=== PATIENT | female | born 1995 | race African-American/Black ===

== ENCOUNTER 2024-11-12 08:09 | Outpatient (AMB) | payer OTHER, SELFPAY ==
--- NOTE | 2024-11-12 10:23 | A.OFFVIS_ITS ---
VS Expanded 11/12/24 10:29 Height 5 ft 7.5 in Weight 236 lb BMI 36.4 Body Fat % 45.4 Body Fat Mass 107.2 Fat Free Mass 128.8 Visceral Fat Rating 9 Body Water % 39.3 Body Water Mass 92.6 Basal Metabolic Rate/Score 1,851 Intake Visit Reasons: [facility] Allergies No Known Allergies Allergy (Verified 11/12/24 10:23) Medication List - Last Reconciled 11/12/24 by Hayden Watters MD No Known Home Meds HPI HPI [facility]: Details: Start time: 10.12am, End time: 10.47am ?I spent 40 minutes speaking with the patient on the phone plus an additional 5 minutes reviewing and updating records for a total of 45 minutes HPI Comments Details: Previous weight loss efforts: diet and exercise Wakes up: 7am, Sleeps: 11pm Breakfast: 3-4/wk (fruit smoothie, oatmeal, waggle, eggs) Lunch: 1-2pm (salad, meat with potatoes) Dinner: 6pm (as lunch) Snacks: 8pm (shoaib crackers) Exercise: none, gym membership Beverages: Coffee: (8oz/d with Premier protein shake), tea: (2 cups/d with milk), soda: none, juice: none, ETOH: none PFSH Medical History (Updated 11/12/24 @ 10:42 by Hayden Watters MD) Hypertension BMI 36.0-36.9,adult Obesity Surgical History (Updated 10/27/24 @ 13:25 by Bess Swanson CMA) Hx of colonoscopy Hx of oral surgery Hx of section Family History (Updated 10/27/24 @ 13:27 by Bess Swanson CMA) Mother No problems noted. Father Family history unknown Daughter No problems noted. Daughter No problems noted. Daughter No problems noted. Social History (Updated 10/27/24 @ 13:27 by Bess Swanson CMA) Alcohol intake: never Patient Tobacco Use Status: Never used Tobacco Telehealth Telehealth Telehealth Platform: Telephone Location of provider rendering services: practice address Location of patient: address on file Patient Identification confirmed using: Name, : Yes Telehealth method: voice only Patient verbally consented to treatment: Yes Patient verbally consented to billing insurance company: Yes Patient informed of any privacy concerns related to visit: Yes Minutes spent on Phone/Video with Pt.: 45 Assessment & Plan Assessment & Plan (1) Obesity: Code(s): E66.9 - Obesity, unspecified Category: Medical Qualifiers: Obesity type: due to excess calories Obesity classification: adult class 2 (BMI 35 - 39.9) Serious obesity comorbidity presence: without serious comorbidity Body mass index: BMI 36.0-36.9 Qualified Code(s): E66.812 - Obesity, class 2; E66.09 - Other obesity due to excess calories; Z68.36 - Body mass index [BMI] 36.0-36.9, adult Plan: 1. We discussed in detail the available therapeutic options: 1) our lifestyle intervention program that has an average weight loss of 10% in 3 months.? 2) Weight loss medications. Her insurance will approve the Phentermine. Only if Phentermine is not successful or causes side effects such as high blood pressure, insomnia, irritability or dry mouth we could prescribe the GLP-1 injections. You can self pay for the first 3 months and the cost is $399 for the first month and $499 for any other month thereafter. 3) We also discussed about the lap sleeve gastrectomy. I emphasized the importance of close follow-up, adherence to instructions and good communication. The surgery does not replace the need to change your lifestlyle which is the cause of the obesity problem. The surgery provides the motivation to try again to change your lifestyle, it reduces the appetite and make the transition to a better lifestyle easier and doubles the amount of weight you would lose compared to doing the lifestyle change without the surgery. You will need to be on a liquid diet with protein shakes for 2 weeks before surgery to maximize weight loss and boost your nutritional status to recover better from surgery and also for the first two weeks after surgery to let the stomach heal before we introduce other foods. After the first 2 weeks we will introduce protein bars and soft foods like scra mbled eggs, cottage cheese and yogurt and after the 6th week will introduce meat, fish and cooked vegetables in small amounts. Over time you should be able to eat everything in small amounts. Side effects like nausea, vomiting, heartburn or abdominal pain are not common in the practice unless you are not following in the practice. This operation requires lifetime commitment to following in our practice and communication with me. You will much less weight and experience side effects if you don?t communicate or not following in the practice. Complications are rare and in our practice is about 1/10 of the national average. The patient will consider these options and will get back to me with her decision.
[2024-11-12 10:29] VITALS: BMI 36.4
== END 2024-11-12 10:47 | disposition home or self-care (01) ==
LOC: HO.HBS 08:09
PROVIDERS: PCP Internal Medicine; Visit Provider Surgery
DX: E66.812 Obesity, class 2 (principal); E66.09 Other obesity due to excess calories; Z68.36 Body mass index [BMI] 36.0-36.9, adult
CPT/HCPCS: 99204

== ENCOUNTER → 2024-11-12 08:09 | Outpatient (BNVA) | payer OTHER, SELFPAY | PROVIDERS: PCP Internal Medicine; Visit Provider Surgery ==

== ENCOUNTER 2024-11-25 09:52 | Outpatient (REF) | payer OTHER, SELFPAY ==
--- NOTE | ~2024-11-25 | XR_ITS ---
EXAMINATION: XR CHEST CLINICAL INFORMATION: E66.812 - Obesity, class 2 COMPARISON: None available. TECHNIQUE: 2 views of the chest were obtained. FINDINGS: The cardiac, hilar, and mediastinal contours are normal. The lungs are clear bilaterally. There is no pneumothorax or pleural effusion. There is no focal osseous or soft tissue abnormality. XR/XR chest 2V IMPRESSION: Normal chest. Electronically signed by: Duong John MD 11/25/2024 10:36 AM EDT
--- NOTE | 2024-11-25 10:03 | ECG_ITS ---
Test Reason : PREPROC EXAM Blood Pressure : */* mmHG Vent. Rate : 60 BPM Atrial Rate : 60 BPM P-R Int : 178 ms QRS Dur : 106 ms QT Int : 384 ms P-R-T Axes : 33 62 20 degrees QTcB Int : 384 ms Normal sinus rhythm Normal ECG No previous ECGs available Referred By: Hayden Watters Electronically Signed By: Aly Ortiz
[2024-11-25 10:18] LABS: MANUAL DIFF FLAG NO
[2024-11-25 10:45] LABS: Basophils Percent Auto 0.6 % (0-2); Eosinophils Absolute Auto 0.1 X10*3/uL (0.0-0.4); Eosinophils Percent Auto 1.7 % (0-4); Hematocrit 35.5 % (37.0-47.0); Hemoglobin 10.9 g/dl (12.0-16.0); Imm Gran Abs Auto 0.02 X10*3/uL (0.00-0.03); Imm Gran Pct Auto 0.4 % (0.0-0.4); Lymphocytes Absolute Auto 1.5 X10*3/uL (1.2-4.9); Lymphocytes Percent Auto 28.4 % (20-40); Mean Corpuscular HGB Conc 30.7 g/dl (31.0-35.0); Mean Corpuscular Hemoglobin 21.3 pg (27.0-33.0); Mean Corpuscular Volume 69.3 fL (80.0-98.0); Mean Platelet Volume 11.8 fL (9.4-12.3); Monocytes Absolute Auto 0.4 X10*3/uL (0.1-1.2); Monocytes Percent Auto 6.9 % (2-11); Neutrophils Absolute Auto 3.3 x10*3/uL (2.0-8.3); Platelet Count 277 X10*3/uL (160-400); Red Blood Count 5.12 X10*6/uL (4.20-5.50); Red Cell Distribution Width 15.3 % (11.0-16.0); White Blood Count 5.3 X10*3/uL (4.8-10.8)
[2024-11-25 10:51] LABS: Estimated Average Glucose 108 mg/dL; Hemoglobin A1c % 5.4 % (<6.0)
--- OUTSIDE RECORDS SUMMARY | 2024-11-25 11:05 | XMS_ITS | Clinical Summary ---
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 [address], [place] [phone] * (ABNORMAL) Iron and TIBC (10/06/2024 2:35 PM EDT) Iron 40 40 - 150 mcg/dL LAB CHEMISTRY METHOD 10/06/2024 9:41 PM EDT [facility] TIBC 341 250 - 450 mcg/dL LAB CHEMISTRY METHOD 10/06/2024 9:41 PM EDT [facility] Iron Saturation 12(L) 15 - 50 % LAB CHEMISTRY METHOD 10/06/2024 9:41 PM EDT [facility] Blood Venous blood specimen / Unknown Venipuncture / Unknown 10/06/2024 2:35 PM EDT 10/06/2024 2:35 PM EDT [facility] BLOOD ORDERABLES Fi nal Result [facility] [address] [place] [address], [place] [phone] * Ferritin (10/06/2024 2:35 PM EDT) Ferritin 17 8 - 252 ng/mL LAB CHEMISTRY METHOD 10/06/2024 10:02 PM EDT [facility] Blood Venous blood specimen / Unknown Venipuncture / Unknown 10/06/2024 2:35 PM EDT 10/06/2024 2:35 PM EDT [facility] BLOOD ORDERABLES Fi nal Result [facility] [address] [place] [address], [place] [phone] * (ABNORMAL) Lipid panel with reflex to direct LDL (09/25/2024 9:32 AM EDT) Cholesterol 163 0 - 200 mg/dL LAB CHEMISTRY METHOD 09/25/2024 10:33 AM EDT [facility] Triglycerides 55 0 - 150 mg/dL LAB CHEMISTRY METHOD 09/25/2024 10:[address] [facility] HDL 50 >=40 mg/dL LAB CHEMISTRY METHOD 09/25/2024 10:33 AM EDT [facility] LDL Calculated 102(H) 0 - 100 mg/dL LAB CHEMISTRY METHOD 09/25/2024 10:33 AM EDT [facility] VLDL Cholesterol Jodi 11 mg/dL LAB CHEMISTRY METHOD 09/25/2024 10:33 AM T [facility] Non HDL Chol. (LDL+VLDL) 113 <145 mg/dL LAB CHEMISTRY METHOD 09/25/2024 10:33 AM EDT [facility] Chol/HDL Ratio 3.3 0.0 - 4.4 LAB CHEMISTRY METHOD 09/25/2024 10:33 AM T [facility] Blood Venous blood specimen / Unknown Venipuncture / Unknown 09/25/2024 9:32 AM EDT 09/25/2024 9:46 AM EDT [facility] BLOOD ORDERABLES Fi nal Result [facility] [address] [place] [address], [place] [phone] * (ABNORMAL) CBC auto differential (09/25/2024 9:32 AM EDT) [facility] WBC 5.8 4.8 - 10.8 K/mcL LAB HEMETOLOGY METHOD 09/25/2024 10:[address] [facility] RBC 5.00(H) 3.80 - 4.80 M/mcL LAB HEMETOLOGY METHOD 09/25/2024 10:[address] [facility] Hemoglobin 10.7(L) 11.5 - 16.0 g/dL LAB HEMETOLOGY METHOD 09/25/2024 10:[address] [facility] Hematocrit 35.8 35.0 - 47.0 % LAB HEMETOLOGY METHOD 09/25/2024 10:[address] [facility] MCV 72.3(L) 79.0 - 98.0 FL LAB HEMETOLOGY METHOD 09/25/2024 10:[address] [facility] MCH 21.6(L) 27.0 - 32.0 pcg LAB HEMETOLOGY METHOD 09/25/2024 10:[address] [facility] MCHC 29.9(L) 32.0 - 37.0 g/dL LAB HEMETOLOGY METHOD 09/25/2024 10:[address] [facility] RDW 14.9 11.0 - 15.0 % LAB HEMETOLOGY METHOD 09/25/2024 10:[address] [facility] Platelets 365 130 - 400 K/mcL LAB HEMETOLOGY METHOD 09/25/2024 10:[address] [facility] MPV 11.7(H) 7.0 - 11.0 FL LAB HEMETOLOGY METHOD 09/25/2024 10:[address] [facility] NRBC 0.0 <1.0 % LAB HEMETOLOGY METHOD 09/25/2024 10:[address] [facility] NRBC Absolute 0.00 <0.10 K/mcL LAB HEMETOLOGY METHOD 09/25/2024 10:[address] [facility] Neutrophils Relative 61.7 % LAB HEMETOLOGY METHOD 09/25/2024 10:[address] [facility] Lymphocytes Relative 30.1 % LAB HEMETOLOGY METHOD 09/25/2024 10:[address] [facility] Monocytes Relative 6.0 % LAB HEMETOLOGY METHOD 09/25/2024 10:[address] [facility] Eosinophils Relative 1.2 % LAB HEMETOLOGY METHOD 09/25/2024 10:[address] [facility] Basophils Relative 0.7 % LAB HEMETOLOGY METHOD 09/25/2024 10:[address] [facility] Immature Granulocytes Relative 0.3 % LAB HEMETOLOGY METHOD 09/25/2024 10:[address] [facility] Neutrophils Absolute 3.57 1.50 - 7.00 K/mcL LAB HEMETOLOGY METHOD 09/25/2024 10:[address] [facility] Lymphocytes Absolute 1.74 1.00 - 5.00 K/mcL LAB HEMETOLOGY METHOD 09/25/2024 10:[address] [facility] Monocytes Absolute 0.35 0.20 - 1.00 K/mcL LAB HEMETOLOGY METHOD 09/25/2024 10:[address] [facility] Eosinophils Absolute 0.07 0.00 - 0.50 K/mcL LAB HEMETOLOGY METHOD 09/25/2024 10:[address] [facility] Basophils Absolute 0.04 0.00 - 0.20 K/mcL LAB HEMETOLOGY METHOD 09/25/2024 10:[address] [facility] Immature Granulocytes Absolute 0.02 0.00 - 0.03 K/[facility] LAB HEMETOLOGY METHOD 09/25/2024 10:00 AM EDT [facility] Blood Venous blood specimen / Unknown Venipuncture / Unknown 09/25/2024 9:32 AM EDT 09/25/2024 9:46 AM EDT [facility] BLOOD ORDERABLES Fi nal Result Performing Organization Address City/[facility]/ZIP Co de Phone Number [facility] [address] [place] [address], [place] [phone] * Hemoglobin A1c (09/25/2024 9:32 AM EDT) [facility] Hemoglobin A1C 6.1 % 09/25/2024 12:31 PM EDT [facility] Mean Bld Glu Estim. 128 mg/dL 09/25/2024 12:31 PM EDT [facility] Blood Venous blood specimen / Unknown Venipuncture / Unknown 09/25/2024 9:32 AM EDT 09/25/2024 9:46 AM EDT [facility] BLOOD ORDERABLES Fi nal Result Performing Organization Address [facility]/ZIP In de Phone Number [facility] [address] [place] [address], [place] [phone] * Hepatitis C Screening (03/27/2023) [facility] Hepatitis C Screening Abstracted Historical Provider HEALTH MAINTENANCE Final Result * Pap smear (08/26/2021) 08/26/2021 Narrative HISTORICAL TESTING LAB RESULTING AGENCY - 09/08/2021 3:36 PM EDT [id number] THINPREP PAP, IMAGED: NEGATIVE FOR SQUAMOUS INTRAEITHELIAL LESION AND MALIGNANCY. VICTORINO IS PRESENT. NOTE: THE PAP TEST IS A SCREENING TEST WITH AN INHERENT FALSE NEGATIVE RATE. AUTOMATED PRESCREENING OF ALL LIQUID BASED SPECIMENS IS PERFORMED BY THE THINPREP IMAGING SYSTEM UNLESS OTHERWISE STATED. KIMBERLEY PEOPLES(ASCP) (CASE ELECTRONICALLY SIGNED 09 08 2021) ADEQUACY: SATISFACTORY ENDOCERVICAL/TRANSFORMATION ZONE COMPONENT PRESENT. SOURCE: THINPREP PAP HPV IF ASCUS, CERVICAL, IMAGED CLINICAL INFORMATION: HPV IF DIAGNOSIS OF ASCUS. , Z12.4 Adam Chatterjee DO LAB CYTOLOGY ORDERABLES Final Result HISTORICAL TESTING LAB RESULTING AGENCY * HIV Screening (08/24/2021) HIV Screening Abstracted Historical Provider HEALTH MAINTENANCE Final Result from Last 3 Months or Most Recently Relevant to Health Maintenance Insurance [facility] Outline PLAN Care Teams Auto Transport Driver Relationship Specialty Start Date End Date Joon Hickman MD [address] [place] [id number] PCP - General Internal Medicine 09/09/21
[2024-11-25 11:24] LABS: Alanine Aminotransferase 14 U/L (0-31); Albumin Level 4.5 g/dL (3.5-5.0); Alkaline Phosphatase 77 U/L (39-117); Anion Gap 9 (12-20); Aspartate Amino Transferase 20 U/L (5-31); Bilirubin Total 0.5 mg/dL (0.0-1.0); Blood Urea Nitrogen 15 mg/dL (9-16); C Reactive Protein 0.29 mg/dL (< or = 0.50); Calcium 9.5 mg/dL (8.4-10.2); Carbon Dioxide 26 mmol/L (22-29); Chloride 109 mmol/L (96-108); Cholesterol 170 mg/dL (<200); Estimated Glomerular Filt Rate > 60; Glucose Random 88 mg/dL (60-115); HDL Cholesterol 40 mg/dL (>40); Iron 44 mcg/dL (30-160); LDL Cholesterol Calculated 120 mg/dL (<100); Percent Iron Saturation 13 % (15-50); Potassium 3.8 mmol/L (3.3-5.1); Sodium 140 mmol/L (135-145); Total Iron Binding Capacity 331 mcg/dL (228-428); Total Protein 7.4 g/dL (6.5-8.0); Triglycerides 52 mg/dL (<150); Unsaturated Iron Binding 287 ug/dL
[2024-11-25 11:53] LABS: Vitamin B12 630 pg/mL (200-900)
[2024-11-25 11:54] LABS: Ferritin 20 ng/mL (10-122); TSH reflex Free T4 1.03 uIU/mL (0.32-4.0); Vitamin D 25-OH Total 28.2 ng/mL (>30)
[2024-11-25 11:59] LABS: Insulin 6 uU/mL (2-29)
[2024-11-27 23:19] LABS: Zinc 85 mcg/dL (60-130)
[2024-11-28 20:03] LABS: Vitamin A 38 mcg/dL (38-98)
[2024-11-30 14:09] LABS: Vitamin B1 9 nmol/L (8-30)
== END 2024-11-25 09:53 | disposition home or self-care (01) ==
LOC: HO.XRAY 09:52
PROVIDERS: Visit Provider Surgery
DX: E66.812 Obesity, class 2 (principal); E66.09 Other obesity due to excess calories; Z68.36 Body mass index [BMI] 36.0-36.9, adult
CPT/HCPCS: 36415; 71046; 80053; 80061; 82306; 82607; 82728; 82746; 83036; 83525; 83540; 84425; 84443; 84590; 84630; 85025; 86140; 93005

== ENCOUNTER → 2024-11-25 10:03 | Outpatient (BNV) | payer OTHER, SELFPAY | PROVIDERS: Visit Provider Internal Medicine Cardiovascular Disease | DX: Z13.6 Encounter for screening for cardiovascular disorders (principal) | CPT/HCPCS: 93010 ==

== ENCOUNTER → 2024-11-25 10:19 | Outpatient (BNV) | payer OTHER, SELFPAY | PROVIDERS: Visit Provider Radiology Diagnostic Radiology | DX: E66.812 Obesity, class 2 (principal) | CPT/HCPCS: 71046 ==

== ENCOUNTER 2024-12-08 09:13 | Outpatient (REF) | payer OTHER, SELFPAY ==
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
--- NOTE | ~2024-12-08 | FL_ITS ---
EXAMINATION: XR FLUOROSCOPY UPPER GI WITH AIR CLINICAL INFORMATION: Obesity. Preop COMPARISON: None available. TECHNIQUE: Routine upper GI contrast study was performed in upright and lying position. FINDINGS: Following oral administration of thick barium and effervescent granules in upright view there is normal propagation of bolus from the oral cavity through the pharynx, esophagus into stomach without obstruction, narrowing or stricture. Or extrinsic compression seen The mucosal pattern of the esophagus is normal. On placing patient supine and prone lying the course, caliber and peristalsis of the stomach, duodenal bulb and sweep is normal. The mucosal pattern of stomach and the duodenum is normal. FLUOROSCOPY TIME: 1 minute 36 seconds DOSE AREA PRODUCT: 158.9 uGy-m2 (microgray-meter squared) FL/FL upper GI w air IMPRESSION: Unremarkable upper GI air contrast study. Electronically signed by: Musa Yang MD 12/08/2024 10:03 AM EDT RP
== END 2024-12-08 09:14 | disposition home or self-care (01) ==
LOC: HO.XRAY 09:13
PROVIDERS: PCP Internal Medicine; Visit Provider Surgery
DX: E66.812 Obesity, class 2 (principal); E66.09 Other obesity due to excess calories; Z68.36 Body mass index [BMI] 36.0-36.9, adult
CPT/HCPCS: 74246

== ENCOUNTER → 2024-12-08 09:15 | Outpatient (BNV) | payer OTHER, SELFPAY | PROVIDERS: PCP Internal Medicine; Visit Provider Radiology Diagnostic Radiology | DX: E66.9 Obesity, unspecified (principal) | CPT/HCPCS: 74246 ==

== ENCOUNTER 2024-12-19 11:03 | Outpatient (AMB) | payer OTHER, SELFPAY ==
--- NOTE | 2024-12-19 11:05 | MHC.WMTHER ---
Intake Intake Visit Reasons: OV BH Intake Allergies No Known Allergies Allergy (Verified 11/12/24 10:23) [facility] Medical History (Updated 11/27/24 @ 20:10 by Hayden Watters MD) Hypertension BMI 36.0-36.9,adult Obesity Surgical History (Updated 10/27/24 @ 13:25 by Bess Swanson CMA) Hx of colonoscopy Hx of oral surgery Hx of section Family History (Updated 10/27/24 @ 13:27 by Bess Swanson CMA) Mother No problems noted. Father Family history unknown Daughter No problems noted. Daughter No problems noted. Daughter No problems noted. Social History (Updated 10/27/24 @ 13:27 by Bess Swanson CMA) Alcohol intake: never Patient Tobacco Use Status: Never used Tobacco Behavioral Health Assessment Weight Management Therapy Therapy Notes Details The patient is a 29-year-old female presenting for an initial visit to begin a behavioral health assessment as part of a surgical weight loss program. She reports being referred by her primary care provider due to her interest in medical weight-loss options. The patient has experienced significant weight gain over the past 4-5 years following motherhood and currently has three children under the age of three, with the youngest being one year old. PT expresses uncertainty about whether weight-loss surgery is the right option for her at this time. Presenting Concerns Referral Source WMP-Provider. Reason for referral Completion of behavioral health assessment as part of process for weight-loss surgery. Precipitating Event Obesity. Social History Family history and relationship PT is 5 years ago, they have 3 children (3 and under - 3 girls) and a stepson. PT is the youngest of 4, she has 2 siblings alive, 1 passed. Her parents are alive. PT reports she has a good relationship with them. Parental/Familial security guard obligations 3 daughters and shared custody of stepson. Developmental history and status None reported. Social support , parents. Community support Therapist, PCP. Hoahaoism/Spirituality Yarsani. Cultural/Ethnic information -South African. Legal Involvement and History Current or historical involvement with the legal system? None reported. Education Highest grade completed Graduated HS Some college - Business management. Preferred learning style Learn by doing Currently enrolled in educational program? No Interested in further educational program? Yes Educational Interests/Skills Would like to go back for [employer]. Employment Employment Status Unemployed (SAHM) Wants help to find employment? No Meaningful activities work in process. Financial Situation Describe current financial situation Comfortable and Occasional struggle Financial assistance? Food [place] and [place] ([place]) Service Service? No Mental Health and Addiction Treatment Psychiatric history PT currently attends counseling at [facility] with Gracia Short. She has been in therapy for couple of months, she started attending counseling Medical and Physical Health Summary Additional Medical History not covered in history None additional Sexual History concerns None reported. Physical exam in the last year? Yes [place] [email or web address] Pain Screening Current pain? No Pain in the last few months? No Medications Is the patient compliant with medications? Yes (D/C Phentermine, had side effects. ) Does the patient have James Guardian in place? Not applicable Does the patient use complimentary health approaches? No Questionnaires PHQ-9 Over the last 2 weeks, how often have you been bothered by any of the following problems? 1. Little interest or pleasure in doing things: not at all 2. Feeling down, depressed, or hopeless: not at all 3. Trouble falling or staying asleep, or sleeping too much: not at all 4. Feeling tired or having little energy: several days 5. Poor appetite or overeating: not at all 6. Feeling bad about yourself - or that you are a failure or have let yourself or your family down: not at all 7. Trouble concentrating on things, such as reading the newspaper or watching television: not at all 8. Moving or speaking so slowly that other people could have noticed. Or the opposite - being so fidgety or restless that you have been moving around a lot more than usual: not at all 9. Thoughts that you would be better off or of hurting yourself in some way: not at all Total score: 1 Depression Screening Interpretation: Negative (From new PT pack done on 10/27/2024.) Depression Screening Done: Yes Source: Developed by Drs. Luisito Gutiérrez, Lary Arvizu, Urbano Rodriguez and colleagues, with an educational lacho from [employer]. Binge Eating Scale Group 1 A. I don't feel self-conscious about my wt. or body size when I'm with others. B. I feel concerned about how I look to others, but it normally does not make me fell disappointed with myself C. I do get self-conscious about my appearance and wt. which makes me feel disappointed in myself. D. I feel very self-conscious about my wt. and frequently I feel intense shame and disgust for myself. I try to avoid social contacts because of my self-consciousness. Response Group 1: A Group 2 A. I don't have any difficulty eating slowly in the proper manner. B. Although I seem to gobble down foods, I don't end up feeling stuffed because of eating to much. C. At times, I tend to eat quickly and then, I feel uncomfortably full afterwards. D. I have the habit of bolting down my food, without really chewing it. When this happens I usually feel uncomfortably stuffed because I've eaten to much. Response Group 2: A Group 3 A. I feel capable to control my eating urges when I want to. B. I feel like I have failed to control my eating more than the average person. C. I feel utterly helpless when it comes to feeling in control of my eating urges. D. Because I feel so helpless about controlling my eating I have become very desperate about trying to get control. Response Group 3: A Group 4 A. I don't have the habit of eating when I'm bored. B. I sometimes eat when I'm bored, but often I'm able to get busy and get my mind off food. C. I have a regular habit of eating when I'm bored, but occasionally, I can use some other activity to get my mind off eating. D. I have a strong habit of eating when I'm bored. Nothing seems to help me breath the habit. Response Group 4: B Group 5 A. I'm usually physically hungry when I eat something. B. Occasionally, I eat something on impulse even though I really am not hungry. C. I have the regular habit of eating foods, that I might not really enjoy, to satisfy a hungry feeling even though physically, I don't need the food. D. Although I'm not physically hungry, I get a hungry feeling in my mouth that only seems to be satisfied when I eat a food, like sandwich, that fills my mouth. Sometimes, when I eat the food to satisfy my mouth hunger, I then spit the food out so I won't gain weight. Response Group 5: A Group 6 A. I don't feel any guilt or self-hate after I overeat. B. After I overeat, occasionally I feel guilt or self-hate. C. Almost all the time I experience strong guilt or self-hate after I overeat. Response Group 6: A Group 7 A. I don't lose total control of my eating when dieting even after periods when I overeat. B. Sometimes when I eat a forbidden food on a diet, I feel like I blew it and eat even more. C. Frequently, I have the habit of saying to myself, I've blown it now, why not go all the way, when I overeat on a diet. When that happens I eat more. D. I have a regular habit of starting a strict diets for myself but I break the diets by going on an eating binge. My life seems to be either a feast or famine. Response Group 7: B Group 8 A. I rarely eat so much food that I feel uncomfortably stuffed afterwards. B. Usually about once a month, I each such a quantity of food, I end up feeling very stuffed. C. I have regular periods during the month when I eat large amounts of food, either at mealtime or at snacks. D. I eat so much food that I regularly feel quite uncomfortable after eating and sometimes a bit nauseous. Response Group 8: A Group 9 A. My level of calorie intake does not go up very high or go down very low on a regular basis. B. Sometimes after I overeat, I will try to reduce my caloric intake to almost nothing to compensate for the excess calories I've eaten. C. I have a regular habit of overeating during the night. It seems that my routine is not to be hungry in the morning but overeat in the evening. D. In my adult years, I have had week-long periods where I practically starve myself. This follows periods when I overeat. It seems I live a life of either feast or famine. Response Group 9: B Group 10 A. I usually am able to stop eating when I want to. I know when enough is enough. B. Every so often, I experience a compulsion to eat which I can't seem to control. C. Frequently, I experience strong urges to eat which I seem unable to control, but at other times I can control my eating urges. D. I feel incapable of controlling urges to eat. I have a fear of not being able to stop eating voluntarily. Response Group 10: A Group 11 A. I don't have any problem stopping eating when I feel full. B. I usually can stop eating when I feel full but occasionally overeat leaving me feeling uncomfortably stuffed. C. I have a problem stopping eating once I start and usually I feel uncomfortably stuffed after I eat a meal. D. Because I have a problem not being able to stop eating when I want, I sometimes have to induce vomiting to relieve my stuffed feeling. Response Group 11: B Group 12 A. I seem to eat just as much when I'm with others, Family social gatherings as when I'm by myself. B. Sometimes, when I'm with other persons, I don't eat as much as I want to eat because I'm self-conscious about my eating. C. Frequently, I eat only a small amount of food when others are present, because I'm very embarrassed about my eating. D. I feel so ashamed about overeating that I pick times to overeat when I know no one will see me. I feel like a closet eater. Response Group 12: A Group 13 A. I eat three meals a day with only an occasional between meal snack. B. I eat 3 meals a day, but I also normally snack between meals. C. When I am snacking heavily, I get in the habit of skipping regular meals. D. There are regular periods when I seem to be continually eating, with no planned meals. Response Group 13: D Group 14 A. I don't think much about trying to control unwanted eating urges. B. At least some of the time, I feel my thoughts are pre-occupied with trying to control my eating urges. C. I feel that frequently I spend much time thinking about how much I ate or about trying not to eat anymore. D. It seems to me that most of my waking hours are pre-occupied by thoughts about eating or not eating. I feel like I'm constantly struggling not to eat. Response Group 14: A Group 15 A. I don't think about food a great deal. B. I have strong craving for food but they last only for brief periods of time. C. I have days when I can't seem to think about anything else but food. D. Most of my days seem to be pre-occupied with thoughts about food. I feel like I live to eat. Response Group 15: A Group 16 A. I usually know whether or not I'm physically hungry. I take the right portion of food to satisfy me. B. Occasionally, I feel uncertain about knowing whether or not I'm physically hungry. A these times it's hard to know how much food I should take to satisfy me. C. Even though I might know how many calories I should eat, I don't have any idea what is a normal amount of food for me. Response Group 16: B Binge Eating Score: 8 Score less than 17 Minimal Risk Score between 18-26 Moderate Risk Score between 27-46 High Risk Assessment & Plan Assessment & Plan (1) Adjustment disorder: Code(s): F43.20 - Adjustment disorder, unspecified Qualifiers: Adjustment disorder type: unspecified type Qualified Code(s): F43.20 - Adjustment disorder, unspecified (2) Pre-bariatric surgery psychological evaluation: Code(s): Z71.89 - Other specified counseling Plan The patient was not cleared today as the assessment remains incomplete. She will return in 2-4 weeks to continue the evaluation process. The patient has expressed a preference for in-person sessions. Next Appointment:?01/16/2025 at 12:00 PM, in person. Coding Level of Care Code New Pt Psy Diag Saryshea ([id number]) Patient Type New Diagnoses Adjustment disorder, unspecified type F43.20 Adjustment disorder type: unspecified type Pre-bariatric surgery psychological evaluation Z71.89 Time Spent (min) 60
--- OUTSIDE RECORDS SUMMARY | 2024-12-19 11:42 | XMS_ITS | Clinical Summary ---
Author Organization [facility] [address] [facility] Address [address] [place], [place] Phone Care Team Providers Care Pad Hand Name Role Phone Joon Hickman MD Primary Care Provider [phone] Allergies Active Allergy Reactions Criticality Noted Date Comments House Dust 07/16/2015 Sneezing Other Runny nose Medium 03/19/2023 Seasonal Allergies Watery eyes, sneezing Medications valACYclovir (VALTREX) 500 mg tablet if needed. 06/25/2023 Active ferrous gluconate (FERGON) 324 mg (38 mg iron) tablet Take 1 tablet (324 mg total) by mouth every other day. 15 each 11/04/2024 Active magnesium, amino acid chelate, 133 mg tablet Take 1 tablet (133 mg total) by mouth 1 (one) time each day. Active phentermine 37.5 mg capsule Take 1 capsule (37.5 mg total) by mouth 1 (one) time each day before breakfast. Max Daily Amount: 37.5 mg Active Active Problems Problem Noted Date Diagnosed Date [...] Had stress test after last delivery at [facility], Normal with no follow up necessary per pt. Will request records 06-27-2019 pt seen by pcp - angelica . EKG was done, reviewed by Dr. Payton me, no previous 1 to compare. It is questionably suggesting left ventricular hypertrophy, with borderline Q waves in the inferior leads. Referred to [facility] - [facility] 08-11-2019 pt saw [facility] cardiology - pt dx with atypical chest pain, positive murmur. Echo and exercise tolerance test ordered. F/u with [employer] [facility] 02-10-2020 [facility] cardiology records- echo completed 01/20/2020 no significant [...] Records sent to scanning 12/07/20 Patient states [facility] Cardiology does not want to perform stress test while patient is . I called [facility] Cardiology and confirmed they do not recommend stress test in . Their recommendation is for her to go to ER if she experiences chest pain or shortness of breath. Adam Chatterjee, 11/09/2020 I called [facility]iology today to confirm whether she needs [...] Assessment & Plan: Will obtain records from [facility] from stress test. Per pt, no follow up necessary. Encounters Date Type Department Care Team Description 12/04/2024 11:00 AM EDT Office Visit Obstetrics and Gynecology [address] [phone] Cathy Shore PA PMS (premenstrual syndrome) (Primary Dx) 11/27/2024 Telephone Obstetrics & Gynecology [address] [phone] Brandi Majano CNM Premenstrual Syndrome 11/19/2024 Telephone Obstetrics & Gynecology [address] [phone] Ayse Nieves CNM Med Refill 11/14/2024 Telephone Obstetrics and Gynecology - [address] [phone] Marcy Jarvis DO Results 11/10/2024 11:02 AM EDT Anesthesia Event [address] [phone] Christal Knox MD Millay, Julia, CRNA 11/10/2024 10:15 AM EDT - 11/10/2024 11:30 AM EDT Surgery [facility] OR [address] [place] [phone] Marcy Jarvis DO HYSTEROSCOPY W/ DILATION & CURETTAGE [41145 (CPT )] 11/10/2024 8:59 AM EDT - 11/10/2024 1:36 PM EDT Hospital Encounter [address] [phone] Marcy Jarvis DO Endometrial thickening on ultrasound; Abnormal uterine bleeding (AUB) Discharge Disposition: Home or Self Care 11/04/2024 8:45 AM EDT Office Visit Internal Medicine - [address] [phone] Joon Hickman MD Iron deficiency anemia secondary to inadequate dietary iron intake (Primary Dx); Prediabetes; Class 2 obesity due to excess calories without serious comorbidity with body mass index (BMI) of 37.0 to 37.9 in adult; Hyperhidrosis; Chronic sore throat 10/29/2024 Telephone Obstetrics and Gynecology - [address] [phone] Marcy Jarvis DO 10/23/2024 11:00 AM EDT Procedure visit Obstetrics and Gynecology - [address] [phone] Cathy Shore PA Abnormal uterine bleeding (AUB) (Primary Dx); Endometrial thickening on ultrasound 10/08/2024 9:15 AM EDT - 10/08/2024 11:59 PM EDT Hospital Encounter Ultrasound - [address] [phone] Abnormal uterine bleeding (AUB) Discharge Disposition: Home or Self Care 10/07/2024 Telephone Obstetrics and Gynecology - [address] [phone] Cathy Shore PA Results 10/06/2024 3:30 PM EDT Office Visit Obstetrics and Gynecology - [address] [phone] Cathy Shore PA Abnormal uterine bleeding (AUB) (Primary Dx); Vaginal irritation; Screen for STD (sexually transmitted disease) 10/06/2024 Telephone Pediatrics - [address] [phone] Joon Hickman MD Results 09/26/2024 Telephone Internal Medicine - [address] [phone] Victorina Nicolas MA Results 09/26/2024 Telephone Obstetrics and Gynecology - [address] [phone] Brandi Majano CNM Vaginal/vulvar Complaint from Last 3 Months Immunizations Name Administration Dates Next Due DTP 06/24/2001 DTaP (Infanrix) 6wks to less than 7yo ,05/21/1997,04/09/1997,02/19 [id number] (Pentacel) 2mo to less than 5yo 05/12/1999,05/21/1997,04/09/1997,02/19 [...] 4d F Vag-S pont Livin g Delivery Location:[facility] 2021 Term 37w 3d 3118 g (110 oz) F CS-LT ranv Epidur al,Gen eral N Livin g 1 8 Georges Clayton MD Comments:PLTCS for NRF HT, CHTN, GDMA2. Epidural converted to general 2023 Term 37w 1d F Epidur al Livin g Brandi Majano CNM Complications:-barbara rosalie hypertension Last Filed Vital Signs Vital Sign Reading Time Taken Comments Blood Pressure 120/76 12/04/2024 11:10 AM EDT Pulse 70 12/04/2024 11:10 AM EDT Temperature 36.2 C (97.2 F) 11/10/2024 12:43 PM EDT Respiratory Rate 15 12/04/2024 11:10 AM EDT Oxygen Saturation 100% 11/10/2024 12:43 PM EDT Inhaled Oxygen Concentration - - Weight 103 kg (227 lb 9.6 oz) 12/04/2024 11:10 A M EDT Height 172.7 cm (5' 8 ) 12/04/2024 11:10 AM EDT Body Mass Index 34.61 12/04/2024 11:10 AM EDT Plan of Treatment Health Maintenance Due Date Last Done Comments Pneumococcal Vaccine: Pediatrics (0 to 5 Years) and At-Risk Patients (6 to 49 Years) (1 of 2 - PCV) 11/17/2015 Depression Screening 05/20/2022 Social Influencers of Health Screening 05/20/2022 COVID-19 Vaccine ( season) 2024 Cervical Cancer Screening: Pap Smear 08/26/2024 08/26/2021, 08/26/2021, 08/26/2021, Additional history exists Influenza Vaccine (#1) 2025 Cholesterol Screening (Lipid Panel) 09/25/2029 09/25/2024, [...] Procedure Name Priority Date/Time Associated Diagnosis Comments EXTERNAL XRAY REPORT 12/08/2024 EXTERNAL XRAY REPORT 12/08/2024 TISSUE EXAM Routine 11/10/2024 11:32 AM EDT Endometrial thickening on ultrasound Abnormal uterine bleeding (AUB) TH AN LMA(NO CHARGE) Routine 11/10/2024 11:22 AM EDT CA HYSTEROSCOPY W/BIOPSY ENDOMETRIUM AND/OR POLYPECTOMY W/O AND/OR [...] 09/25/2024 9:32 AM EDT Health maintenance examination HM HEPATITIS C SCREENING Routine 03/27/2023 PAP SMEAR Routine 08/26/2021 HM HIV SCREENING Routine 08/24/2021 from Last 3 Months or Most Recently Relevant to Health Maintenance Results * External Xray Report (12/08/2024) Only the most recent of2 resultswithin the time period is included. Anatomical Region Laterality Modality Radiographic Olivia ging us Provider [facility] XR PROCEDURES Final Result * Tissue exam (11/10/2024 11:32 AM EDT) Final Diagnosis Endometrial curettage: Weakly proliferative endometrium with focal breakdown No endometrial polyp, hyperplasia or neoplasm identified Benign endocervical mucosa 11/11/2024 9:[address] [facility] Gross Description A. Endometrium, EMC: Labeled [facility] Endo . Received in formalin, some of which is on Telfa, is a 3.0 x 1.5 x 0.3 cm aggregate of soft, womack-pink to red, slightly polypoid tissue fragments and blood clot, which is wrapped in paper and submitted in toto in one cassette, multiple pieces, x 2. TS 11/11/2024 9:[address] [facility] Disclaimer Unless otherwise specified, all tissue is 10% NB formalin fixed and paraffin embedded. 11/11/2024 9:[address] [facility] Tissue Endometrial structure / Unknown 11/10/2024 11:32 AM EDT 11/10/2024 12:00 PM EDT us Marcy Jarvis DO LAB PATHOLOGY ORDERABLES Estela quevedo Result [facility] [address] [place] [address], * TH AN LMA(NO CHARGE) (11/10/2024 11:22 AM EDT) Narrative Shahida Thorne CRNA - 11/10/2024 11:22 AM EDT Shahida Thorne CRNA 11/10/2024 11:22 AM General Information and Staff Patient location during procedure: OR Performed by: Shahida Thorne CRNA Authorized by: Christal Knox MD Intubation Airway not difficult Urgency: elective Final [...] TEST ENTER/SABA T ORDERABLES Final Result * US Pelvis Non OB Complete w Transvaginal (10/08/2024 [...] Signed Date: 10/08/2024 13:23 ET Workstation ID: [id number] Transcribed By: Self Edit Transcribed Date: 10/08/2024 [...] Signed Date: 10/08/2024 13:23 ET Workstation ID: [id number] Transcribed By: Self Edit Transcribed Date: 10/08/2024 13:21 ET us [facility] US PROCEDURES Final Resu lt * Thyroid stimulating hormone with reflex to free t4 and free t3 (10/06/2024 4:17 PM EDT) Only the most recent of2 resultswithin the time period is included. [facility] TSH 1.16 0.40 - 4.00 mcIU/mL LAB CHEMISTRY METHOD 10/06/2024 8:[address] [facility] Blood Venous blood specimen / Unknown Venipuncture / Unknown 10/06/2024 4:17 PM EDT 10/06/2024 4:17 PM EDT us Cathy [facility] LAB BLOOD ORDERABLES Final R esult Performing Organization Address City/[facility]/ZIP Co de Phone Number [facility] [address] [place] [address], [place] [phone] * HCG, serum, qualitative (10/06/2024 4:17 PM EDT) [facility] hCG Qual Negative Negative 10/06/2024 7:[address] [facility] Blood Venous blood specimen / Unknown Venipuncture / Unknown 10/06/2024 4:17 PM EDT 10/06/2024 4:17 PM EDT us Cathy [facility] BLOOD ORDERABLES Final R esult [facility] [address] [place] [address], [place] [phone] * Trichomonas vaginalis antigen (10/06/2024 4:16 PM EDT) Trichomonas vaginalis Negative Negative 10/06/2024 9:[address] [facility] Swab Vaginal structure / Unknown Non-blood Collection / Unknown 10/06/2024 4:16 PM EDT 10/06/2024 4:16 PM EDT [facility] MICROBIOLOGY - GENERAL O RDERABLES Final Result Performing Organization Address [facility]/ZIP Co de Phone Number [facility] [address] [place] [address], [place] [phone] * Chlamydia trachomatis and Neisseria gonorrhoeae molecular study (10/06/2024 4:16 PM EDT) Neisseria gonorrhoeae PCR Negative Negative LAB MOLECULAR DIAGNOSTICS METHOD 10/07/2024 8:[address] [facility] Chlamydia trachomatis PCR Negative Negative LAB MOLECULAR DIAGNOSTICS METHOD 10/07/2024 8:[address] [facility] Swab Vaginal structure / Unknown Non-blood Collection / Unknown 10/06/2024 4:16 PM EDT 10/06/2024 4:16 PM EDT us Cathy [facility] MICROBIOLOGY - GENERAL O RDERABLES Final Result Performing Organization Address [facility]/ZIP Co de Phone Number [facility] [address] [place] [address], [place] [phone] * Wet prep, genital (10/06/2024 4:16 PM EDT) Clue Cells, Wet Prep Negative Negative 10/06/2024 9:[address] [facility] Yeast, Wet Prep Negative Negative 10/06/2024 9:[address] [facility] Trichomonas, Wet Prep Indeterminate Negative 10/06/2024 9:36 PM EDT [facility] Comment:Refer to Trichomonas antigen. Swab Vaginal structure / Unknown Non-blood Collection / Unknown 10/06/2024 4:16 PM EDT 10/06/2024 4:16 PM EDT [facility] MICROBIOLOGY - GENERAL O RDERABLES Final Result Performing Organization Address [facility] Co de Phone Number [facility] [address] [place] [address], [place] [phone] * (ABNORMAL) Iron and TIBC (10/06/2024 2:35 PM EDT) Iron 40 40 - 150 mcg/dL LAB CHEMISTRY METHOD 10/06/2024 9:[address] [facility] TIBC 341 250 - 450 mcg/dL LAB CHEMISTRY METHOD 10/06/2024 9:[address] [facility] Iron Saturation 12(L) 15 - 50 % LAB CHEMISTRY METHOD 10/06/2024 9:[address] [facility] Blood Venous blood specimen / Unknown Venipuncture / Unknown 10/06/2024 2:35 PM EDT 10/06/2024 2:35 PM EDT Dieter [facility] BLOOD ORDERABLES Fi nal Result Performing Organization Address [facility] Co de Phone Number [facility] [address] [place] [address], [place] [phone] * Ferritin (10/06/2024 2:35 PM EDT) Ferritin 17 8 - 252 ng/mL LAB CHEMISTRY METHOD 10/06/2024 10:[address] [facility] Blood Venous blood specimen / Unknown Venipuncture / Unknown 10/06/2024 2:35 PM EDT 10/06/2024 2:35 PM EDT [facility] BLOOD ORDERABLES Fi nal Result [facility] [address] [place] [address], [place] [phone] * (ABNORMAL) Lipid panel with reflex to direct LDL (09/25/2024 9:32 AM EDT) [facility] Cholesterol 163 0 - 200 mg/dL LAB CHEMISTRY METHOD 09/25/2024 10:[address] [facility] Triglycerides 55 0 - 150 mg/dL LAB CHEMISTRY METHOD 09/25/2024 10:[address] [facility] HDL 50 >=40 mg/dL LAB CHEMISTRY METHOD 09/25/2024 10:[address] [facility] LDL Calculated 102(H) 0 - 100 mg/dL LAB CHEMISTRY METHOD 09/25/2024 10:[address] [facility] VLDL Cholesterol Issa 11 mg/dL LAB CHEMISTRY METHOD 09/25/2024 10:33 AM [facility] Non HDL Chol. (LDL+VLDL) 113 <145 mg/dL LAB CHEMISTRY METHOD 09/25/2024 10:[address] [facility] Chol/HDL Ratio 3.3 0.0 - 4.4 LAB CHEMISTRY METHOD 09/25/2024 10:33 AM [facility] Blood Venous blood specimen / Unknown Venipuncture / Unknown 09/25/2024 9:32 AM EDT 09/25/2024 9:46 AM EDT [facility] BLOOD ORDERABLES Fi nal Result [facility] [address] [place] [address], [place] [phone] * (ABNORMAL) CBC auto differential (09/25/2024 9:32 AM EDT) WBC 5.8 4.8 - 10.8 K/mcL LAB HEMETOLOGY METHOD 09/25/2024 10:00 AM [facility] RBC 5.00(H) 3.80 - 4.80 M/mcL LAB HEMETOLOGY METHOD 09/25/2024 10:00 AM [facility] Hemoglobin 10.7(L) 11.5 - 16.0 g/dL LAB HEMETOLOGY METHOD 09/25/2024 10:00 AM [facility] Hematocrit 35.8 35.0 - 47.0 % LAB HEMETOLOGY METHOD 09/25/2024 10:00 AM [facility] MCV 72.3(L) 79.0 - 98.0 FL LAB HEMETOLOGY METHOD 09/25/2024 10:00 AM [facility] MCH 21.6(L) 27.0 - 32.0 pcg LAB HEMETOLOGY METHOD 09/25/2024 10:00 AM [facility] MCHC 29.9(L) 32.0 - 37.0 g/dL LAB HEMETOLOGY METHOD 09/25/2024 10:00 AM [facility] RDW 14.9 11.0 - 15.0 % LAB HEMETOLOGY METHOD 09/25/2024 10:00 AM [facility] Platelets 365 130 - 400 K/[facility] LAB HEMETOLOGY METHOD 09/25/2024 10:00 AM [facility] MPV 11.7(H) 7.0 - 11.0 FL LAB HEMETOLOGY METHOD 09/25/2024 10:00 AM [facility] NRBC 0.0 <1.0 % LAB HEMETOLOGY METHOD 09/25/2024 10:00 AM [facility] NRBC Absolute 0.00 <0.10 K/mcL LAB HEMETOLOGY METHOD 09/25/2024 10:00 AM [facility] Neutrophils Relative 61.7 % LAB HEMETOLOGY METHOD 09/25/2024 10:00 AM [facility] Lymphocytes Relative 30.1 % LAB HEMETOLOGY METHOD 09/25/2024 10:00 AM [facility] Monocytes Relative 6.0 % LAB HEMETOLOGY METHOD 09/25/2024 10:00 AM [facility] Eosinophils Relative 1.2 % LAB HEMETOLOGY METHOD 09/25/2024 10:00 AM [facility] Basophils Relative 0.7 % LAB HEMETOLOGY METHOD 09/25/2024 10:00 AM [facility] Immature Granulocytes Relative 0.3 % LAB HEMETOLOGY METHOD 09/25/2024 10:00 AM [facility] Neutrophils Absolute 3.57 1.50 - 7.00 K/mcL LAB HEMETOLOGY METHOD 09/25/2024 10:00 AM [facility] Lymphocytes Absolute 1.74 1.00 - 5.00 K/mcL LAB HEMETOLOGY METHOD 09/25/2024 10:00 AM [facility] Monocytes Absolute 0.35 0.20 - 1.00 K/mcL LAB HEMETOLOGY METHOD 09/25/2024 10:00 AM [facility] Eosinophils Absolute 0.07 0.00 - 0.50 K/mcL LAB HEMETOLOGY METHOD 09/25/2024 10:00 AM [facility] Basophils Absolute 0.04 0.00 - 0.20 K/mcL LAB HEMETOLOGY METHOD 09/25/2024 10:00 AM [facility] Immature Granulocytes Absolute 0.02 0.00 - 0.03 K/mcL LAB HEMETOLOGY METHOD 09/25/2024 10:00 AM [facility] Blood Venous blood specimen / Unknown Venipuncture / Unknown 09/25/2024 9:32 AM EDT 09/25/2024 9:46 AM EDT [facility] LAB BLOOD ORDERABLES Fi nal Result [facility] [address] [place] [address], [place] [phone] * Hemoglobin A1c (09/25/2024 9:32 AM EDT) Hemoglobin A1C 6.1 % 09/25/2024 12:[address] [facility] Mean Bld Glu Estim. 128 mg/dL 09/25/2024 12:[address] [facility] Blood Venous blood specimen / Unknown Venipuncture / Unknown 09/25/2024 9:32 AM EDT 09/25/2024 9:46 AM EDT [facility] BLOOD ORDERABLES Fi nal Result Performing Organization Address City/[facility]/ZIP Co de Phone Number [facility] [address] [place] [address], [place] [phone] * Hepatitis C Screening (03/27/2023) Pathologist [facility] Hepatitis C Screening Abstracted Historical Provider HEALTH MAINTENANCE Final Result * Pap smear (08/26/2021) 08/26/2021 Narrative HISTORICAL TESTING LAB RESULTING AGENCY - 09/08/2021 3:36 PM EDT [id number] THINPREP PAP, IMAGED: NEGATIVE FOR SQUAMOUS INTRAEITHELIAL [...] LAB RESULTING AGENCY * HIV Screening (08/24/2021) Pathologist [facility] HIV Screening Abstracted Historical Provider HEALTH MAINTENANCE Final Result from Last 3 Months or Most Recently Relevant to Health Maintenance Insurance [facility] [employer] Care Teams Pad Hand Relationship Specialty Start Date End Date Joon Hickman MD [address] [place] [address] PCP - General Internal Medicine 09/09/21
== END 2024-12-19 12:17 | disposition home or self-care (01) ==
LOC: HO.HBST 11:04
PROVIDERS: Visit Provider Counselor Mental Health
DX: F43.20 Adjustment disorder, unspecified (principal); Z71.89 Other specified counseling
CPT/HCPCS: 90791